=== PATIENT | male | born 1995 | race Caucasian/White ===

== ENCOUNTER 2018-08-18 14:58 | Emergency (ER) | payer OTHER ==
[~2018-08-18] VITALS: Ht 177.8 cm; Wt 94.3 kg
[2018-08-18 15:17] VITALS: Ht 177.8 cm; Wt 94.3 kg
[2018-08-18 16:55] VITALS: BP 134/73
== END 2018-08-18 17:02 | disposition home or self-care (01) ==
LOC: ED 14:58
DX: S33.5XXA Sprain of ligaments of lumbar spine, initial encounter (principal); S83.91XA Sprain of unspecified site of right knee, initial encounter; V43.52XA Car driver injured in collision with other type car in traffic accident, initial encounter; Y93.I9 Activity, other involving external motion; Y92.413 State road as the place of occurrence of the external cause; Y99.8 Other external cause status